=== PATIENT | male | born 1950 | race Caucasian/White ===

== ENCOUNTER 2016-09-03 10:54 | Day surgery (SDC) | payer MEDICARE, OTHER ==
[2016-09-03] VITALS (8 sets, daily range): BP systolic 107–146; BP diastolic 64–90; PULSE 50–61; RESP 11–19; O2SAT 97–100
[~2016-09-03] VITALS: Ht 175.3 cm; Wt 79.6 kg
[~2016-09-03 10:54] MED LIST: CeFAZolin Inj 2 GM in IV Premix 1 EACH IV ONE
[2016-09-03] MEDS ORDERED: Rocuronium 10 mg/mL 5 mL Inj ONE (10:55)
[2016-09-03] MEDS ORDERED: Neostigmine 1 mg/mL 5 mL Inj ONE (10:55)
[2016-09-03] MEDS ORDERED: Glycopyrrolate 0.2 mg/mL 5 mL Inj ONE (10:55)
[2016-09-03] MEDS ORDERED: Ondansetron 2 mg/mL 2 mL Inj ONE (10:55)
[2016-09-03] MEDS ORDERED: Dexamethasone 4 mg/mL Inj ONE (10:55)
[2016-09-03] MEDS ORDERED: Succinylcholine Chloride 20 mg/mL 5 mL Inj ONE (10:55)
[2016-09-03] MEDS ORDERED: fentaNYL-PF 50 mCg/mL 2 mL Inj ONE (10:55)
[2016-09-03] MEDS ORDERED: Propofol 10,000 mCg/mL 20 mL Inj ONE (10:55)
[2016-09-03] MEDS: Lactated Ringer's 1,000 ML IV SCH ×2 (11:15→13:40)
[2016-09-03] MEDS ORDERED: CeFAZolin Inj 2 gm / 50mL D5W IV ONE (11:16)
[2016-09-03] MEDS ORDERED: Lactated Ringer's 1,000 ML IV SCH (13:33)
[2016-09-03] MEDS ORDERED: Lactated Ringer's 500 ML IV PRN (13:33)
--- NOTE | 2016-09-03 13:33 | PCM.HPANE ---
Patient Data Surgeon Admitting Provider: Attending Provider:Belen Matamoros MD Primary Care Physician:Jono Harley MD Other Provider:Millie Marshallingham Anesthesia Reason for Visit Bladder Tumor Ht/WT & BMI Height (Feet): 5 Height (Inches): 9 Weight (Kilograms): 79.6 Body Mass Index 25.00 Allergies Uncoded Allergies: ENVIRONMENTAL HAY FEVERS/POLLENS (Allergy, Unknown, 08/31/16) Past Anesthesia History Anesthesia History: Denies:: Abnormal Airway, Anesthesia Reactions, Difficult Intubation, Fam Anesthesia Reaction Diabetes History Hx Diabetes?: No MRSA MRSA: No Medications Hypertension Medication: No Home Meds Incl Beta Davis: No No Active Prescriptions or Reported Meds History HEENT History: Denies:: Abnormal Airway Cataracts Difficult Intubation Dysphagia Glaucoma Hearing Problem Sinus Problem TMJ Cardiovascular History: Denies:: AICD Abdominal Aortic Aneurism Atrial Fibrillation Cardiac Surgery Chest Pain Congestive Heart Failure Coronary Artery Disease Edema Heart Murmur Hypertension Irregular Heartbeat Pacemaker Peripheral Vascular Rheumatic Fever Thrombophlebitis Valvular Heart Disease Hx of Respiratory Problem?: No Respiratory History: Denies:: Asthma COPD Emphysema Oxygen Administration Pneumonia Tuberculosis Use of C-PAP Machine Use of Inhalers / NEBS Neurological History: Denies:: Alzheimer's Disease CVA Dementia Dizziness Headaches Multiple Sclerosis Parkinson's Disease Peripheral Neuropathy Seizures TIA Hx of GI Problems?: No Gastrointestinal History: Denies:: Cirrhosis Diverticulitis Gall Bladder Disease Gastroesphageal Reflux Gastrointestinal Bleeding Heartburn Hepatitis Hiatal Hernia Liver Disease Rectal Bleeding Other GI Pertinent History: recent hx of diarrhea and stomach upset that is current resolved (less than a week ago) Hx of Problems?: Yes Genitourinary History: Denies:: Kidney Stones Urinary Tract Infection Other Pertinent History: bladder tumor current admission problem Male Hx: Denies:: Prostate Problems Scrotal Mass Testicular Surgery Skin History: Denies:: History Skin Disorders? Pressure Ulcers Hx Musculoskeletal Problems?: Yes Musculoskeletal History: Positive for:: Back Injury (back ache "work related") Denies:: Degenerative Joint Fibromyalgia Joint Replacement Musculoskeletal Trauma Myasthenia Gravis Osteoarthritis Rheumatoid Arthritis Hx of Psycho/Social Problems?: No Psycho Social History: Denies:: Anxiety Hx Depression Hx Surgeries?: Yes (finger repair, achilles) Hx Any Other Health Problems?: Yes Other History: Denies:: Cancer Thyroid Disease History Blood Transfusions: Positive for:: Accept Blood Products? Denies:: Blood Transfusions Hx Diabetes: No Hx Alcohol Use: YesAlcoholic Drinks Per Day: 2 pints dailyHx Substance Use: NoHave You Smoked inLast 12 mo: Yes (rarely- once every few weeks) Stop/Bang S-Snoring: Do You Snore Loudly: No T-Tired: feel tired, fatigued: No O-Obsered: Observed not breath: No P-Blood Pressure: treated: No B- Body Mass Index > 35 kg/m2: No A- Age over 50: Yes N- Neck Large Circumference: No G- Gender Male: Yes SAMANTHA Total Score: 2 SAMANTHA Risk Assessment: Low Risk, <3 Yes Risk Assessment Category Category 1A: Patient has history of documented sleep apnea, and HAS NOT received any narcotic, sedative or anesthesia administration during this stay. Category 1B: Patient has history of documented sleep apnea, and HAS received any narcotic , sedative or anesthesia administration during this stay Category 2: Patient has SUSPECTED Obstructive Sleep Apnea, and HAS received any narcotic , sedative or anesthesia administration during this stay. Category 3: Patient has SUSPECTED Obstructive Sleep Apnea and HAS NOT received narcotic, sedative or anesthesia administration during this stay. Category 4: Outpatient in Procedural Areas with known sleep apnea or who screen positive for High Risk via the STOP/BANG questionnaire. Exam Exam Vital Signs Vital Signs Date Time Temp Pulse Resp B/P Pulse Ox O2 Delivery O2 Flow Rate FiO2 09/03/16 11:25 36.2 54 17 122/80 99 Room Air General Appearance: Alert, Oriented X3, Cooperative, No Acute Distress HEENT/AIRWAY: MP 2 Lungs: Clear to Auscultation, Normal Air Movement Heart: Exam Unremarkable, Regular Rate/Rhythm, No Murmurs/Rubs/Gallops Meds/Labs/Diagnostics Admission Meds Current Medications Lactated Ringer's (Lr) 1,000 ml @ 120 mls/hr Q8H20M IV Last administered on t 11:15; Start 09/03/16 at 05:00; Stop 09/03/16 at 13:19 Plan Impression Patient chart reviewed, patient interviewed and anesthestic plan with risks, benefits, and alternatives discussed, and informed consent obtained. NPO Status: 09/02/162099 ASA Physical Status: ASA2 Mod Systemic Disease Anesthetic Plan: GA Bene/Risks/Altern/Consents: Yes (surgeon requests paralysis necessitating GETA) HP Complete Prior to Induction: Yes Harish Eden MD Sep 03, 2016 13:11
[2016-09-03] MEDS ORDERED: Labetalol 5 mg/mL 4 mL Inj IV PRN (13:35)
[2016-09-03] MEDS ORDERED: Phenylephrine 10,000 mCg/mL Inj IVPUSH PRN (13:35)
[2016-09-03] MEDS ORDERED: hydrALAZINE 20 mg/mL Inj IVPUSH PRN (13:35)
[2016-09-03] MEDS ORDERED: fentaNYL-PF 50 mCg/mL 2 mL Inj IVPUSH PRN (13:35)
[2016-09-03] MEDS ORDERED: EPHEDrine Sulfate 50 mg/mL Inj IVPUSH PRN (13:35)
[2016-09-03] MEDS ORDERED: HYDROmorphone 1 mg/mL Inj IVPUSH PRN (13:35)
[2016-09-03] MEDS ORDERED: MetoCLOpramide 5 mg/mL 2 mL Inj IVPUSH PRN (13:35)
[2016-09-03] MEDS ORDERED: Ondansetron 2 mg/mL 2 mL Inj IVPUSH PRN (13:35)
[2016-09-03] MEDS ORDERED: Atropine 0.4 mg/mL Inj IVPUSH PRN (13:35)
[2016-09-03] MEDS ORDERED: Lidocaine 2% 5 mL Topical Jelly TOPICAL ONE (14:30)
[2016-09-03] MEDS ORDERED: HYDROcodone-APAP 5-325 mg Tablet PO PRN (14:45)
--- NOTE | 2016-09-03 14:57 | PCM.ANEP1 ---
Post Anesthesia Phase 1 PACU Phase 1 Assessment Vital Signs Vital Signs Date Time Temp Pulse Resp B/P Pulse Ox O2 Delivery O2 Flow Rate FiO2 09/03/16 11:25 36.2 54 17 122/80 99 Room Air Anesthetic Administered: GA Level of Alertness: Sleepy, easy to arouse LAINEZ's with Equal Strength: Yes Pain: No Nausea or Vomiting: No Airway Device: Oralpharangeal Airway (initially, removed before I left the bedside and patient awake) Lungs: Clear to Auscultation, Normal Air Movement Summary VSS Harish Eden MD Sep 03, 2016 14:57
--- NOTE | 2016-09-03 15:00 | PCM.ANEP2 ---
Post Anesthesia Evaluation ASA/CMS Post Anesthesia VS in Patient's Normal Range?: Yes Resp Stable; Airway Patent?: Yes CV Function & Hydration Stable: Yes Mental Status Recovered?: Yes Pain control Satisfactory?: Yes N/V Control Satisfactory?: Yes Harish Eden MD Sep 03, 2016 15:00
--- NOTE | 2016-09-04 01:23 | OP ---
[address] [address] OPERATIVE REPORT PATIENT: HOANG MOONEY : 1950 MR#: [id number] ADMIT: 09/03/2016 JOB ID: [id number] DATE OF SURGERY: 09/03/2016 PREOPERATIVE DIAGNOSIS(ES): Bladder tumor. POSTOPERATIVE DIAGNOSIS(ES): Bladder tumor. PROCEDURE PERFORMED: 1. A rectal exam under anesthesia. 2. Cystoscopy and transurethral resection of bladder tumor (4 cm). SURGEON: Belen Matamoros MD FINDINGS: 1. Normal prostate, smooth, without nodules. No fixed masses. 2. Left base of bladder tumor involving the superior aspect of the left ureteral orifice, papillary appearing approximately 4 cm. ANESTHESIA: General. ESTIMATED BLOOD LOSS: Less than 5 mL. DRAINS: None. SPECIMENS: 1. Bladder tumor. 2. Base of bladder tumor. COMPLICATION: None. CONDITION: Stable. INDICATION FOR PROCEDURE: The patient is a 66-year-old gentleman with a bladder tumor who wished to proceed with transurethral resection of bladder tumor. DESCRIPTION OF THE PROCEDURE: After informed consent was obtained, the patient was taken to the operating room. Time-out was performed, identifying correct patient, surgical site, and procedure. General anesthesia was smoothly induced. A rectal exam was performed without unusual findings. His genitals were then prepped and draped in usual sterile fashion. Intravenous antibiotics were given just prior to the start of procedure. A 26-Maltese resectoscope was applied to the patient's urethra and advanced to the bladder. The bladder was drained. Bladder was systematically inspected. There was one bladder tumor as aforementioned. A 24-Maltese resecting loop was applied to it and it was resected in piecemeal fashion. The superior aspect of the left ureteral orifice was resected as well. No cautery was used over this area. After the specimen was removed from the bladder, cold cup biopsy forceps and the loop were used to take deep samples of the base. Fulguration commenced at the base of bladder tumor and a 1 cm margin around it. The bladder was then drained. The patient was then reversed from general anesthesia and taken to the PACU in good and stable condition. [facility]
--- NOTE | 2016-09-05 14:15 | PATH ---
SURGICAL PATHOLOGY Attending Physician:Belen Matamoros, CASE STATUS: Signed Out PATIENT NAME: HOANG MOONEY PID: [id number] : 1950 DATE COLLECTED:09/03/2016 00:00 SPECIMEN: 1: Bladder, Biopsy 2: Bladder, Biopsy CLINICAL HISTORY: BLADDER TUMOR 1). BLADDER TUMOR 2). DEEP BASE BLADDER TUMOR FINAL DIAGNOSIS: 1. Specimen Designated Bladder Tumor (Transurethral Resection): Papillary urothelial carcinoma, high grade. Negative for evidence of invasion of lamina propria. No definite muscularis propria identified. 2. Deep Base Bladder Tumor: Fragments of muscularis propria, negative for malignancy. Small focus of in situ papillary urothelial carcinoma also present. ICD10: C67.9 NOTE: Case reviewed by Dr. Eduin Teague, who agrees with the diagnosis. GROSS DESCRIPTION: The specimen is received in two formalin filled containers labeled with the patient's name. 1). The specimen is sublabeled "bladder tumor" and consists of multiple portions of tissue which aggregate to 3.5 and 2.0 x 0.5 CM. The specimen is entirely submitted in cassettes 1A, 1B, 1C. 2). The specimen is sublabeled "deep base bladder tumor" and consists of 4 portions of tissue which aggregate to 0.4 x 0.4 x 0.2 CM. The specimen is entirely submitted in cassette 2A. 09/04/2016 [facility] ICD-9 CODES: CPT CODES: 2: 36299, 99041 PROCEDURE/ADDENDA: Addendum SPI Addendum Diagnosis Slides reviewed at Pathology, by Clarke Nunez MD PhD 1). Bladder Tumor, TURBT: Carcinoma with the following features: Histologic type:Papillary urothelial carcinoma, noninvasive Histologic grade:Low grade Depth of invasion:No invasive carcinoma identified Flat carcinoma in situ:Not identified Associated lesions:None Muscularis propria:Not identified Lymphovascular invasion: Not identified (no invasive carcinoma in the sampled tissue) Tumor volume:3cc 2). Deep Base Bladder Tumor, Biopsy: A. Focal residual papillary urothelial carcinoma, low grade, noninvasive. B. Fragments of muscularis propria, negative for malignancy. Comment: We agree with the original interpretation of papillary urothelial carcinoma. However, in my opinion the neoplasm is best classified as low grade. This case was also reviewed by Dr. Marni Cagle, who also favors low grade. Addendum Comment Please see [facility] report [id number] for complete details. This was a 2nd opinion requested by Dr. Matamoros, [facility] Urology Dept. Electronically Signed Out Khai Fay MD Electronically Signed Out Khai Fay MD [facility] Pathology [facility] [address], [place] [address] Technical component performed at [facility], [address], [place], [address]
== END 2016-09-03 23:59 | disposition home or self-care (01) ==
LOC: SAS 10:54
PROVIDERS: ATTEND Urology
DX: C67.9 Malignant neoplasm of bladder, unspecified (principal); N28.1 Cyst of kidney, acquired; R31.0 Gross hematuria; F17.210 Nicotine dependence, cigarettes, uncomplicated
CPT/HCPCS: 52235; 88305; 88307; J0330; J0690; J1100; J2405; J2710; J3010; J7120